=== PATIENT | female | born 1955 | race Caucasian/White ===

== ENCOUNTER 2018-01-25 05:57 | Day surgery (SDC) | payer BC ==
[~2018-01-25] VITALS: Ht 165.1 cm; Wt 90.7 kg
[~2018-01-25 05:57] MED LIST: BL ADULT ASA81 MG PO; CVS OMEPRAZOLE20 MG PO; LEVOTHYROXIN125 MC1 PO; METO50TA52 PO; METOPROL TAR25 MG PO; SYNTHROID100 MCG PO; SYNTHROID112 MCG PO; TRAVATAN0.0041 OP
[2018-01-25] MEDS ORDERED: MAGNESIUM 250 M1 TAB PO (06:50)
[2018-01-25 09:28] VITALS: BP 119/68
== END 2018-01-25 08:00 | disposition home or self-care (01) | DRG 392 ==
LOC: ENDO 05:57 → ORM 07:30 → ENDO 07:40
PROVIDERS: ATTEND Surgery
PROC: 0DB78ZX Excision of Stomach, Pylorus, Via Natural or Artificial Opening Endoscopic, Diagnostic (ICD-10-PCS; principal; 2018-01-25)
PROC: 0DJD8ZZ Inspection of Lower Intestinal Tract, Via Natural or Artificial Opening Endoscopic (ICD-10-PCS; 2018-01-25)
DX: R10.13 Epigastric pain (principal); K59.00 Constipation, unspecified; R14.0 Abdominal distension (gaseous); K31.9 Disease of stomach and duodenum, unspecified; Q40.2 Other specified congenital malformations of stomach; K29.40 Chronic atrophic gastritis without bleeding; K44.9 Diaphragmatic hernia without obstruction or gangrene; K64.4 Residual hemorrhoidal skin tags; K57.30 Diverticulosis of large intestine without perforation or abscess without bleeding; I10 Essential (primary) hypertension; M19.90 Unspecified osteoarthritis, unspecified site; E78.5 Hyperlipidemia, unspecified; Z90.49 Acquired absence of other specified parts of digestive tract

== ENCOUNTER 2018-12-03 20:39 | Emergency (ER) | payer MEDICARE, BC ==
[~2018-12-03] VITALS: Ht 167.6 cm; Wt 96.0 kg
[~2018-12-03 20:39] MED LIST changes: +MAGNESIUM 250 M1 TAB PO
[2018-12-03] MEDS ORDERED: PERCOCET 5/325M1 TAB PO (22:32)
[2018-12-03 23:05] VITALS: BP 139/67
== END 2018-12-03 23:05 | disposition home or self-care (01) ==
LOC: ED 20:39
DX: S82.001A Unspecified fracture of right patella, initial encounter for closed fracture (principal); W18.39XA Other fall on same level, initial encounter; Y92.009 Unspecified place in unspecified non-institutional (private) residence as the place of occurrence of the external cause
CPT/HCPCS: L1830

== ENCOUNTER 2018-12-30 19:21 | Emergency (ER) | payer MEDICARE, BC ==
[~2018-12-30] VITALS: Ht 165.1 cm; Wt 95.4 kg
[~2018-12-30 19:21] MED LIST changes: +PERCOCET 5/325M1 TAB PO; -TRAVATAN0.0041 OP; +TRAVATAN0.0041 OU
[2018-12-30 20:06] LABS: HEMATOCRIT 42.4 % (37.0-47.0); HEMOGLOBIN 14.3 g/dl (12.0-16.0); IMMATURE GRANULOCYTES 0.3 % (0.0-5.0); MEAN CELL VOLUME 90.4 fL CALC (80.0-100.0); MEAN CORPUSCULAR HGB 30.5 pG CALC (26.0-32.0); MEAN CORPUSCULAR HGB CONC 33.7 g/L CALC (32.0-36.0); NEUT# 7.81 thou/uL (2.00-7.15); RED BLOOD COUNT 4.69 mill/uL (4.20-5.60); RED CELL DISTRI WIDTH 12.4 % (11.5-15.5)
[2018-12-30 20:15] LABS: ALBUMIN 4.5 g/dL (3.2-5.0); ALKALINE PHOSPHATASE 119 u/l (38-126); ANION GAP 17 (6-22 (CALC)); BILIRUBIN, TOTAL 0.9 mg/dL (0.0-1.4); BUN 13 mg/dL (8-23); BUN/CREATININE RATIO 21 (12-20 (CALC)); CARBON DIOXIDE 24 mmol/l (22-30); CHLORIDE 101 mmol/l (95-108); CREATININE 0.6 mg/dL (0.5-1.0); GFR > 60 ML/MIN (>=60 (CALC)); GFR FOR AFR.AMER. > 60 ML/MIN (>=60 (CALC)); POTASSIUM 4.1 mmol/l (3.5-5.1); SGOT/AST 23 u/l (9-36); SODIUM 138 mmol/l (137-146); TOTAL PROTEIN 7.6 g/dL (6.3-8.2)
[2018-12-30 20:28] LABS: MYOGLOBIN 23 ng/mL (0 - 62)
[2018-12-30 20:59] LABS: URINE BILIRUBIN - DIPSTICK NEGATIVE (NEGATIVE); URINE BLOOD DIPSTICK NEGATIVE (NEGATIVE); URINE COLOR YELLOW; URINE GLUCOSE - DIPSTICK NEGATIVE (NEGATIVE); URINE KETONE NEGATIVE (NEGATIVE); URINE LEUK ESTERASE NEGATIVE (NEGATIVE); URINE NITRITE - DIPSTICK NEGATIVE (Negative); URINE PROTEIN - DIPSTICK NEGATIVE (NEG-TRACE); URINE SPECIFIC GRAVITY <=1.005; URINE UROBILINOGEN - DIPSTICK 0.2 E.U./dL (0.2)
[2018-12-30 22:21] VITALS: BP 149/66
== END 2018-12-30 22:21 | disposition short-term general hospital (02) ==
LOC: ED 19:21
PROVIDERS: Emergency Medicine
DX: I26.99 Other pulmonary embolism without acute cor pulmonale (principal); S82.001D Unspecified fracture of right patella, subsequent encounter for closed fracture with routine healing; X58.XXXD Exposure to other specified factors, subsequent encounter; R06.02 Shortness of breath
CPT/HCPCS: J1650; Q9967

== ENCOUNTER 2019-01-01 18:37 | Inpatient (IN) | payer MEDICARE, BC ==
[~2019-01-01] VITALS: Ht 165.1 cm; Wt 95.0 kg
[2019-01-01 20:01] LABS: HEMATOCRIT 37.4 % (37.0-47.0); HEMOGLOBIN 12.4 g/dl (12.0-16.0); IMMATURE GRANULOCYTES 0.6 % (0.0-5.0); MEAN CELL VOLUME 92.6 fL CALC (80.0-100.0); MEAN CORPUSCULAR HGB 30.7 pG CALC (26.0-32.0); MEAN CORPUSCULAR HGB CONC 33.2 g/L CALC (32.0-36.0); NEUT# 14.41 thou/uL (2.00-7.15); RED BLOOD COUNT 4.04 mill/uL (4.20-5.60); RED CELL DISTRI WIDTH 12.3 % (11.5-15.5)
[2019-01-01 20:19] LABS: INTERNATIONAL NORMALIZED RATIO 0.9 RATIO (0.7-1.3); PROTHROMBIN TIME 9.9 SECONDS (9.0-12.5)
[2019-01-01 20:21] LABS: ALBUMIN 3.9 g/dL (3.2-5.0); ALKALINE PHOSPHATASE 167 u/l (38-126); ANION GAP 16 (6-22 (CALC)); BILIRUBIN, TOTAL 1.2 mg/dL (0.0-1.4); BUN 13 mg/dL (8-23); BUN/CREATININE RATIO 23 (12-20 (CALC)); CARBON DIOXIDE 26 mmol/l (22-30); CHLORIDE 98 mmol/l (95-108); CREATININE 0.6 mg/dL (0.5-1.0); GFR > 60 ML/MIN (>=60 (CALC)); GFR FOR AFR.AMER. > 60 ML/MIN (>=60 (CALC)); MAGNESIUM 1.8 mg/dL (1.6-2.3); POTASSIUM 4.2 mmol/l (3.5-5.1); SODIUM 135 mmol/l (137-146); TOTAL PROTEIN 6.9 g/dL (6.3-8.2)
[2019-01-01 20:34] LABS: SGOT/AST 100 u/l (9-36)
[2019-01-01] MEDS ORDERED: ELIQUIS5 MG PO (22:34)
[2019-01-01] MEDS ORDERED: NORCO1 TA1 PO (22:35)
[2019-01-01] MEDS ORDERED: LEVOTHYROXIN112 MC1 PO (22:43)
[2019-01-02] VITALS (8 sets, daily range): BP systolic 130–160; BP diastolic 51–80
[2019-01-02 00:12] LABS: URINE BILIRUBIN - DIPSTICK NEGATIVE (NEGATIVE); URINE BLOOD DIPSTICK NEGATIVE (NEGATIVE); URINE COLOR YELLOW; URINE GLUCOSE - DIPSTICK NEGATIVE (NEGATIVE); URINE KETONE 40 mg/dL (NEGATIVE); URINE LEUK ESTERASE NEGATIVE (NEGATIVE); URINE NITRITE - DIPSTICK NEGATIVE (Negative); URINE PH 6.5 (4.5-8.0); URINE PROTEIN - DIPSTICK TRACE mg/dL (NEG-TRACE); URINE SPECIFIC GRAVITY <=1.005; URINE UROBILINOGEN - DIPSTICK 0.2 E.U./dL (0.2)
[2019-01-02] MEDS ORDERED: ATENOLOL25 MG PO (15:44)
[2019-01-03 00:01] VITALS: BP 124/66
[2019-01-03 06:04] LABS: HEMATOCRIT 33.5 % (37.0-47.0); IMMATURE GRANULOCYTES 0.4 % (0.0-5.0); MEAN CELL VOLUME 93.6 fL CALC (80.0-100.0); MEAN CORPUSCULAR HGB 30.7 pG CALC (26.0-32.0); MEAN CORPUSCULAR HGB CONC 32.8 g/L CALC (32.0-36.0); NEUT# 7.83 thou/uL (2.00-7.15); RED BLOOD COUNT 3.58 mill/uL (4.20-5.60); RED CELL DISTRI WIDTH 12.4 % (11.5-15.5)
[2019-01-03 06:20] LABS: ALBUMIN 2.9 g/dL (3.2-5.0); ALKALINE PHOSPHATASE 140 u/l (38-126); AMYLASE < 30 u/l (30-110); ANION GAP 11 (6-22 (CALC)); BILIRUBIN, TOTAL 0.6 mg/dL (0.0-1.4); BUN 7 mg/dL (8-23); BUN/CREATININE RATIO 13 (12-20 (CALC)); CARBON DIOXIDE 28 mmol/l (22-30); CHLORIDE 103 mmol/l (95-108); CREATININE 0.5 mg/dL (0.5-1.0); GFR > 60 ML/MIN (>=60 (CALC)); GFR FOR AFR.AMER. > 60 ML/MIN (>=60 (CALC)); LIPASE 13 u/l (23-300); POTASSIUM 3.9 mmol/l (3.5-5.1); SGOT/AST 46 u/l (9-36); SODIUM 138 mmol/l (137-146); TOTAL PROTEIN 5.6 g/dL (6.3-8.2)
[2019-01-03 08:05] VITALS: BP 144/72
[2019-01-03 12:00] VITALS: BP 141/68
[2019-01-03 16:28] VITALS: BP 132/75
[2019-01-03 20:00] VITALS: BP 179/77
[2019-01-04] VITALS: BP 147/67
[2019-01-04 04:00] VITALS: BP 123/61
[2019-01-04 04:27] LABS: HEMATOCRIT 31.6 % (37.0-47.0); HEMOGLOBIN 10.4 g/dl (12.0-16.0); IMMATURE GRANULOCYTES 0.4 % (0.0-5.0); MEAN CELL VOLUME 92.7 fL CALC (80.0-100.0); MEAN CORPUSCULAR HGB 30.5 pG CALC (26.0-32.0); MEAN CORPUSCULAR HGB CONC 32.9 g/L CALC (32.0-36.0); NEUT# 6.18 thou/uL (2.00-7.15); RED BLOOD COUNT 3.41 mill/uL (4.20-5.60); RED CELL DISTRI WIDTH 12.6 % (11.5-15.5)
[2019-01-04 05:00] LABS: ALBUMIN 2.9 g/dL (3.2-5.0); ALKALINE PHOSPHATASE 137 u/l (38-126); ANION GAP 13 (6-22 (CALC)); BILIRUBIN, TOTAL 0.5 mg/dL (0.0-1.4); BUN 7 mg/dL (8-23); BUN/CREATININE RATIO 14 (12-20 (CALC)); CALCULATED LDLCHOLESTEROL 88 mg/dL (62-129 (CALC)); CARBON DIOXIDE 26 mmol/l (22-30); CHLORIDE 104 mmol/l (95-108); CHOLESTEROL HDL RATIO 3.2 (<4.4 (CALC)); CREATININE 0.5 mg/dL (0.5-1.0); GFR > 60 ML/MIN (>=60 (CALC)); GFR FOR AFR.AMER. > 60 ML/MIN (>=60 (CALC)); HDL CHOLESTEROL 47 mg/dL (>=40); MAGNESIUM 2.1 mg/dL (1.6-2.3); POTASSIUM 4.1 mmol/l (3.5-5.1); SGOT/AST 36 u/l (9-36); SODIUM 139 mmol/l (137-146); TOTAL CHOLESTEROL 152 mg/dl (0-199); TOTAL PROTEIN 5.6 g/dL (6.3-8.2); TOTAL TRIGLYCERIDES 84 mg/dl (30-149); VLDL CHOLESTROL 17 mg/dl (1-41 (CALC))
[2019-01-04 08:04] VITALS: BP 168/75
[2019-01-04] MEDS ORDERED: AMOXICILLIN500 MG PO (11:07)
[2019-01-04] MEDS ORDERED: DOXYCYCL HYC100 MG PO (11:07)
== END 2019-01-04 12:31 | disposition home or self-care (01) | DRG 193 ==
LOC: ED 18:37 → ED-I 22:22 → ED 22:41 → ICU 22:42
PROVIDERS: Emergency Medicine; Family Medicine; ADMIT Internal Medicine; ATTEND Internal Medicine Nephrology
DX: J18.9 Pneumonia, unspecified organism (principal); I26.99 Other pulmonary embolism without acute cor pulmonale; J91.8 Pleural effusion in other conditions classified elsewhere; I10 Essential (primary) hypertension; M19.90 Unspecified osteoarthritis, unspecified site; K76.0 Fatty (change of) liver, not elsewhere classified; I51.89 Other ill-defined heart diseases; K21.9 Gastro-esophageal reflux disease without esophagitis; E03.9 Hypothyroidism, unspecified; E78.5 Hyperlipidemia, unspecified; E66.9 Obesity, unspecified; Y95 Nosocomial condition; Z68.34 Body mass index [BMI] 34.0-34.9, adult; Z79.01 Long term (current) use of anticoagulants; Z96.651 Presence of right artificial knee joint; S82.001D Unspecified fracture of right patella, subsequent encounter for closed fracture with routine healing; X58.XXXD Exposure to other specified factors, subsequent encounter; R06.02 Shortness of breath
CPT/HCPCS: Q9967